=== PATIENT | male | born 1945 | race Caucasian/White ===

== ENCOUNTER 2016-10-12 14:45 | Emergency (ER) | payer MEDICARE, BC ==
[2016-10-12 15:12] VITALS: BP 167/78
--- NOTE | 2016-10-12 15:50 | EDM.PDOC ---
ED HPI GENERAL MEDICAL PROBLEM - General Chief Complaint: Wound Recheck Stated Complaint: SENT FROM [facility] Time Seen by Provider: 10/12/16 15:35 Source of Information: Reports: Patient History Limitations: Reports: No Limitations - History of Present Illness INITIAL COMMENTS - FREE TEXT/NARRATIVE: Patient presents after being sent to the emergency room for continued bleeding from left arm dialysis fistula. He presented with betadine pad, and clamp in place. He is alert, oriented and denies other complaints. 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 (see below) (Betadine, clamp) - Related Data Allergies Allergy/AdvReac Type Severity Reaction Status Date / Time Unable to Assess Allergy Unverified 10/12/16 15:22 Home Meds: Home Meds Calcium Carbonate [Calcium] 10/12/16 [History] Clopidogrel [Plavix] 10/12/16 [History] Gabapentin [Neurontin] 10/12/16 [History] Insulin Lispro [HumaLOG] 10/12/16 [History] Insulin Lispro [HumaLOG] 10/12/16 [History] Lisinopril [Lisinopril] 10/12/16 [History] Metoprolol Succinate 10/12/16 [History] Rosuvastatin [Crestor] 10/12/16 [History] Warfarin [Coumadin] 10/12/16 [History] Past Medical History Cardiovascular History: Reports: High Cholesterol, Hypertension Genitourinary History: Reports: Chronic Renal Insuffiency - Past Surgical History Cardiovascular Surgical History: Reports: Coronary Artery Bypass Other Male Surgeries/Procedures: dialysis Social & Family History - Tobacco Use Smoking Status *Q: Never Smoker ED ROS GENERAL - Review of Systems Review Of Systems: See Below Constitutional: Denies: Fever, Chills, Malaise, Weakness HEENT: Reports: No Symptoms Respiratory: Denies: Shortness of Breath, Wheezing, Cough, Sputum Cardiovascular: Denies: Chest Pain, Dyspnea on Exertion, Lightheadedness, Palpitations, Syncope Endocrine: Reports: No Symptoms Musculoskeletal: Denies: Arm Pain, Joint Swelling, Muscle Pain Skin: Reports: Other (Bleeding wound to left dialysis access. ) Neurological: Denies: Confusion, Dizziness, Headache Psychiatric: Reports: No Symptoms Hematologic/Lymphatic: Reports: Easy Bleeding Immunologic: Reports: No Symptoms ED EXAM, GENERAL - Physical Exam Exam: See Below Exam Limited By: No Limitations General Appearance: Alert, WD/WN, No Apparent Distress Eye Exam: Bilateral Eye: EOMI, PERRL Ears: Normal External Exam, Normal Canal, Hearing Grossly Normal, Normal TMs Ear Exam: Bilateral Ear: Auricle Normal, Canal Normal, TM normal Nose: Normal Inspection, Normal Mucosa, No Blood Throat/Mouth: Normal Inspection, Normal Lips, Normal Teeth, Normal Gums, Normal Oropharynx, Normal Voice, No Airway Compromise Head: Atraumatic, Normocephalic Respiratory/Chest: No Respiratory Distress, Lungs Clear, Normal Breath Sounds, No Accessory Muscle Use, Chest Non-Tender Cardiovascular: Normal Peripheral Pulses, Regular Rate, Rhythm, No Edema, No Gallop, No Murmur Peripheral Pulses: 2+: Radial (L), Radial (R), Dorsalis Pedis (L), Dorsalis Pedis (R) Back Exam: Normal Inspection, Full Range of Motion. No: CVA Tenderness (R), CVA Tenderness (L) Extremities: Normal Inspection, Normal Range of Motion, Non-Tender, No Pedal Edema, Normal Capillary Refill, Other (Dressing with betadine, coban and ice to left arm access. No bleeding at this time. ) Neurological: Alert, Oriented, CN II-XII Intact, Normal Cognition, Normal Gait, No Motor/Sensory Deficits Psychiatric: Normal Affect, Normal Mood Skin Exam: Warm, Dry, Intact, Other (Controlled bleeding from left arm access. ) Lymphatic: No Adenopathy Course - Vital Signs Last Recorded V/S: Last Vital Signs Temp 36.6 C 10/12/16 15:33 Pulse 85 10/12/16 15:33 Resp 16 10/12/16 15:33 BP 167/78 H 10/12/16 15:33 Pulse Ox 95 10/12/16 15:33 - Orders/Labs/Meds Labs: Laboratory Tests 10/12/16 Range/Units 15:50 PT 16.4 H (9.5-12.0) sec INR 1.51 H (0.80-1.20) APTT 44.5 H (27.0-36.0) sec Lab work reviewed. - Re-Assessments/Exams Free Text/Narrative Re-Assessment/Exam: 10/12/16 16:27 No bleeding at this time for 40 minutes. Patient will be discharged to home. Departure - Departure Time of Disposition: 16:24 Disposition: Home, Self-Care 01 Condition: Fair Clinical Impression: Complication of AV dialysis fistula Instructions: Puncture Wound, Xsay-on-Odla Referrals: PCP,None [Primary Care Provider] - Forms: ED Department Discharge Additional Instructions: To treat the bleeding from your fistula we used pressure and ice. This worked well and stopped the bleeding. It is best to keep the compression dressing in place for 60 more minutes once you leave the ER. It is also best to place ice to the area for 15 minutes at time for the next 2 to 4 hours. Return for worsening, issues or concerns. - Assessment/Plan Assessment:: Bleeding from dialysis fistula site status post dialysis. No bleeding during ER stay and at time of discharge Plan: Use of pressure and ice since time of arrival. This worked well and stopped the bleeding. Patient advised it is best to keep the compression dressing in place for 60 more minutes once he leaves the ER. It is also best to place ice to the area for 15 minutes at time for the next 2 to 4 hours. Return for worsening, issues or concerns.
== END 2016-10-12 16:55 | disposition home or self-care (01) ==
LOC: JP.ED 14:45
DX: T82.838A Hemorrhage due to vascular prosthetic devices, implants and grafts, initial encounter (principal); I12.9 Hypertensive chronic kidney disease with stage 1 through stage 4 chronic kidney disease, or unspecified chronic kidney disease; N18.9 Chronic kidney disease, unspecified; E78.00 Pure hypercholesterolemia, unspecified; Z95.1 Presence of aortocoronary bypass graft; Z99.2 Dependence on renal dialysis
CPT/HCPCS: 36415; 85610; 85730; 99283; 99284

== ENCOUNTER 2017-07-30 11:07 | Emergency (ER) | payer MEDICARE, BC ==
--- NOTE | 2017-07-30 12:33 | EDM.PDOC ---
ED HPI GENERAL MEDICAL PROBLEM - General Chief Complaint: General Stated Complaint: WEAKNESS Time Seen by Provider: 07/30/17 12:21 Source of Information: Reports: Patient, Family, RN Notes Reviewed History Limitations: Reports: No Limitations - History of Present Illness INITIAL COMMENTS - FREE TEXT/NARRATIVE: 72-year-old gentleman presents to the emergency department today complaint of weakness. He has a known history of end-stage renal disease on dialysis he was scheduled to go to dialysis today however did not make it due to feeling so poorly. He is also been dealing with Clostridium difficile is currently on vancomycin. He is not from the area [place], he denies any other symptoms - Related Data Allergies Allergy/AdvReac Type Severity Reaction Status Date / Time aminophylline Allergy Swelling Verified 07/30/17 11:43 Home Meds: Home Meds Gabapentin [Neurontin] 300 mg PO TID 10/12/16 [History] Insulin Lispro [HumaLOG] 10 units SUBCNJ TID 10/12/16 [History] Lisinopril 5 mg PO DAILY 10/12/16 [History] Metoprolol Succinate 25 mg PO DAILY 10/12/16 [History] Rosuvastatin [Crestor] 40 mg PO DAILY 10/12/16 [History] Warfarin [Coumadin] 7.5 tab PO ASDIRECTED 10/12/16 [History] Aspirin 81 mg PO DAILY 07/30/17 [History] Calcium Acetate 667 mg PO DAILY 07/30/17 [History] Insulin Glarg,Human.Rec.Analog [Lantus Solostar] 15 units SUBCNJ BID 07/30/17 [ History] Nitroglycerin [Nitrostat] 0.4 mg PO ASDIRECTED PRN 07/30/17 [History] Vancomycin 125 mg PO BID 07/30/17 [History] Past Medical History HEENT History: Reports: Impaired Vision Cardiovascular History: Reports: High Cholesterol, Hypertension Gastrointestinal History: Reports: Other (See Below) Other Gastrointestinal History: diverticulitis Genitourinary History: Reports: Chronic Renal Insuffiency Endocrine/Metabolic History: Reports: Diabetes, Type II Hematologic History: Reports: Blood Transfusion(s) - Past Surgical History Cardiovascular Surgical History: Reports: Coronary Artery Bypass GI Surgical History: Reports: Colon Other Male Surgeries/Procedures: dialysis Social & Family History - Tobacco Use Smoking Status *Q: Never Smoker - Caffeine Use Caffeine Use: Reports: Coffee - Alcohol Use Days Per Week of Alcohol Use: 7 Number of Drinks Per Day: 2 Total Drinks Per Week: 14 - Recreational Drug Use Recreational Drug Use: No ED ROS GENERAL - Review of Systems Review Of Systems: See Below Constitutional: Reports: Weakness, Fatigue. Denies: Fever, Chills HEENT: Reports: No Symptoms Respiratory: Reports: No Symptoms Cardiovascular: Reports: No Symptoms GI/Abdominal: Reports: No Symptoms : Reports: No Symptoms Skin: Reports: No Symptoms Neurological: Reports: No Symptoms ED EXAM, GENERAL - Physical Exam Exam: See Below Free Text/Narrative:: General: Male, ill-appearing, alert and oriented x3 HEENT: head is atraumatic normocephalic, eyes pupils equal round reactive to light, sclera clear no conjunctivitis appreciated. Ears tympanic membranes clear and palacios landmarks and light reflex are present bilaterally canals are clear. Nose no septal deviation, nares are clear, no blood present. Mouth mucosa is moist and pink no erythema or exudate noted in soft palate, tongue is midline uvula is midline , dentures in place. Neck: Supple no thyromegaly no tracheal deviation. Nodes: Cervical nodes subclavicular nodes nontender no palpable lymphadenopathy noted. Lungs: clear to auscultation bilaterally with symmetrical respirations, no adventitious noise appreciated. CV: Irregularly irregular rate and rhythm S1 and S2 appreciated no murmurs rubs or gallops noted. Abdomen: Soft, nontender, no palpable masses or organomegaly appreciated, no distention no guarding bowel sounds are present, . Neuro: Cranial nerves II through XII grossly intact Skin: Warm and dry, intact Extremities: No lower extremity edema appreciated, Course - Vital Signs Last Recorded V/S: Last Vital Signs Temp 96.8 F 07/30/17 11:59 Pulse 79 07/30/17 11:59 Resp 20 07/30/17 11:59 BP 103/47 L 07/30/17 11:59 Pulse Ox 94 L 07/30/17 11:59 - Orders/Labs/Meds Orders: Active Orders 24 hr Category Date Time Status Peripheral IV Care [RC] . DIRECTED Care 07/30/17 14:40 Active CULTURE BLOOD [BC] Urgent Lab 07/30/17 14:40 Ordered CULTURE BLOOD [BC] Urgent Lab 07/30/17 14:40 Ordered Piperacillin/Tazobactam [Zosyn] 3.375 gm Med 07/30/17 14:45 Active Sodium Chloride 0.9% [Normal Saline] 50 ml IV Q6H Sodium Chloride 0.9% [Normal Saline] 1,000 ml Med 07/30/17 14:45 Active IV ASDIRECTED Sodium Chloride 0.9% [Saline Flush] Med 07/30/17 14:40 Active 10 ml FLUSH ASDIRECTED PRN Blood Culture x2 Reflex Set [OM.PC] Urgent Ot 07/30/17 14:40 Ordered Peripheral IV Insertion Adult [OM.PC] Urgent Ot 07/30/17 14:39 Ordered Medication Orders Piperacillin Sod/Tazobactam (Sod 3.375 gm/ Sodium Chloride) 50 mls @ 100 mls/ hr IV Q6H BASHIR Sodium Chloride (Normal Saline) 1,000 mls @ 999 mls/hr IV ASDIRECTED BASHIR Sodium Chloride (Saline Flush) 10 ml FLUSH ASDIRECTED PRN PRN Reason: Keep Vein Open Labs: Laboratory Tests 07/30/17 07/30/17 07/30/17 Range/Units 12:41 12:41 12:41 WBC 17.6 H (4.5-11.0) K/uL RBC 3.35 L (4.30-5.90) M/uL Hgb 10.6 L (12.0-15.0) g/dL Hct 31.6 L (40.0-54.0) % MCV 94 (80-98) fL MCH 32 H (27-31) pg MCHC 34 (32-36) % Plt Count 324 (150-400) K/uL Neut % (Auto) 81 H (36-66) % Lymph % (Auto) 9 L (24-44) % Lamb % (Auto) 9 H (2-6) % Eos % (Auto) 1 L (2-4) % Baso % (Auto) 0 (0-1) % PT (9.5-12.0) sec INR (0.80-1.20) Sodium 135 L (140-148) mmol/L Potassium 5.1 (3.6-5.2) mmol/L Chloride 95 L (100-108) mmol/L Carbon Dioxide 23 (21-32) mmol/L Anion Gap 22.1 H (5.0-14.0) mmol/L BUN 75 H (7-18) mg/dL Creatinine 9.1 H* (0.8-1.3) mg/dL Est Cr Clr Drug Dosing 7.20 mL/min Estimated GFR (MDRD) 6 L (>60) Glucose 171 H (74-106) mg/dL Lactic Acid 1.4 (0.4-2.0) mmol/L Calcium 9.1 (8.5-10.1) mg/dL Total Bilirubin 0.4 (0.2-1.0) mg/dL AST 18 (15-37) U/L ALT 30 (12-78) U/L Alkaline Phosphatase 87 (46-116) U/L Troponin I < 0.017 (0.000-0.056) ng/mL C-Reactive Protein (0.0-0.3) mg/dL Total Protein 7.5 (6.4-8.2) g/dL Albumin 3.4 (3.4-5.0) g/dL Globulin 4.1 H (2.3-3.5) g/dL Albumin/Globulin Ratio 0.8 L (1.2-2.2) TSH, Ultra Sensitive 0.558 (0.358-3.740) uIU/mL 07/30/17 07/30/17 Range/Units 14:40 14:41 WBC (4.5-11.0) K/uL RBC (4.30-5.90) M/uL Hgb (12.0-15.0) g/dL Hct (40.0-54.0) % MCV (80-98) fL MCH (27-31) pg MCHC (32-36) % Plt Count (150-400) K/uL Neut % (Auto) (36-66) % Lymph % (Auto) (24-44) % Lamb % (Auto) (2-6) % Eos % (Auto) (2-4) % Baso % (Auto) (0-1) % PT 47.7 H (9.5-12.0) sec INR 4.20 H* D (0.80-1.20) Sodium (140-148) mmol/L Potassium (3.6-5.2) mmol/L Chloride (100-108) mmol/L Carbon Dioxide (21-32) mmol/L Anion Gap (5.0-14.0) mmol/L BUN (7-18) mg/dL Creatinine (0.8-1.3) mg/dL Est Cr Clr Drug Dosing mL/min Estimated GFR (MDRD) (>60) Glucose (74-106) mg/dL Lactic Acid (0.4-2.0) mmol/L Calcium (8.5-10.1) mg/dL Total Bilirubin (0.2-1.0) mg/dL AST (15-37) U/L ALT (12-78) U/L Alkaline Phosphatase (46-116) U/L Troponin I (0.000-0.056) ng/mL C-Reactive Protein 13.60 H (0.0-0.3) mg/dL Total Protein (6.4-8.2) g/dL Albumin (3.4-5.0) g/dL Globulin (2.3-3.5) g/dL Albumin/Globulin Ratio (1.2-2.2) TSH, Ultra Sensitive (0.358-3.740) uIU/mL Meds: Medications Generic Name Dose Route Start Last Admin Trade Name Freq PRN Reason Stop Dose Admin Piperacillin Sod/Tazobactam 50 mls @ 100 mls/hr 07/30/17 14:45 Sod 3.375 gm/ Sodium Chloride IV Q6H BASHIR Sodium Chloride 1,000 mls @ 999 mls/hr 07/30/17 14:45 Normal Saline IV ASDIRECTED BASHIR Sodium Chloride 10 ml 07/30/17 14:40 Saline Flush FLUSH ASDIRECTED PRN Keep Vein Open Departure - Departure Time of Disposition: 15:13 Disposition: DC/Tfer to Acute Hospital 02 Condition: Fair Clinical Impression: End stage renal disease on dialysis - Discharge Information Referrals: PCP,None [Primary Care Provider] - Forms: ED Department Discharge - My Orders Last 24 Hours: My Active Orders 07/30/17 14:39 Peripheral IV Insertion Adult [OM.PC] Urgent 07/30/17 14:40 Peripheral IV Care [RC] . DIRECTED CULTURE BLOOD [BC] Urgent CULTURE BLOOD [BC] Urgent Sodium Chloride 0.9% [Saline Flush] 10 ml FLUSH ASDIRECTED PRN Blood Culture x2 Reflex Set [OM.PC] Urgent 07/30/17 14:45 Piperacillin/Tazobactam [Zosyn] 3.375 gm Sodium Chloride 0.9% [Normal Saline] 50 ml IV Q6H Sodium Chloride 0.9% [Normal Saline] 1,000 ml IV ASDIRECTED - Assessment/Plan Last 24 Hours: My Active Orders 07/30/17 14:39 Peripheral IV Insertion Adult [OM.PC] Urgent 07/30/17 14:40 Peripheral IV Care [RC] . DIRECTED CULTURE BLOOD [BC] Urgent CULTURE BLOOD [BC] Urgent Sodium Chloride 0.9% [Saline Flush] 10 ml FLUSH ASDIRECTED PRN Blood Culture x2 Reflex Set [OM.PC] Urgent 07/30/17 14:45 Piperacillin/Tazobactam [Zosyn] 3.375 gm Sodium Chloride 0.9% [Normal Saline] 50 ml IV Q6H Sodium Chloride 0.9% [Normal Saline] 1,000 ml IV ASDIRECTED Plan: Assessment Acuity = acute Site and laterality = weakness complicated patient with end-stage renal disease also history of atrial fibrillation on anticoagulation therapy Etiology = unclear etiology concern for occult infection Manifestations = none Location of injury = Home Lab values = WBC elevated at 17.6 consistent leukocytosis, hemoglobin low at 10.6 consistent normochromic anemia sodium low at 135 consistent hyponatremia creatinine elevated at 9.1 consistent with end-stage renal disease G5 D lactic acid normal 1.4 troponin normal 0.017 CRP elevated at 13.6 TSH normal 0.5 INR supratherapeutic at 4.2 no image studies done at this time Plan Called discussed case with Dr. Lemon who kindly accepted the patient in transport will be transported via EMS ground blood cultures have been drawn antibiotic of Zosyn initiated in route This note was dictated using [employer] voice recognition software please call with any questions on syntax or chuy.
[2017-07-30] MEDS ORDERED: Sodium Chloride 0.9% 10 ML Syringe FLUSH PRN (14:40)
[2017-07-30] MEDS ORDERED: Sodium Chloride 0.9% 1,000 ML IV SCH (14:45)
[2017-07-30] MEDS ORDERED: Piperacillin/Tazobactam 3.375 GM in Sodium Chloride 0.9% 50 ML IV SCH (14:45)
[2017-07-30] MEDS ORDERED: Piperacillin/Tazobactam/Dext 3.375 GM in Premix Bag 1 BAG IV SCH (15:30)
[2017-07-30 15:38] VITALS: BP 114/47
== END 2017-07-30 15:46 ==
LOC: JP.ED 11:07
DX: I12.0 Hypertensive chronic kidney disease with stage 5 chronic kidney disease or end stage renal disease (principal); E11.22 Type 2 diabetes mellitus with diabetic chronic kidney disease; N18.6 End stage renal disease; E78.00 Pure hypercholesterolemia, unspecified; I48.91 Unspecified atrial fibrillation; Z88.8 Allergy status to other drugs, medicaments and biological substances; Z79.4 Long term (current) use of insulin; Z79.899 Other long term (current) drug therapy; Z79.82 Long term (current) use of aspirin; Z79.01 Long term (current) use of anticoagulants
CPT/HCPCS: 36415; 80053; 83605; 84443; 84484; 85025; 85610; 86140; 87040; 96361; 96374; 99285; J2543; J7040; J7050

== ENCOUNTER 2019-01-05 23:38 | Emergency (ER) | payer MEDICARE, BC ==
--- NOTE | 2019-01-05 23:45 | EDM.PDOC ---
ED HPI GENERAL MEDICAL PROBLEM - General Chief Complaint: Cardiovascular Problem Stated Complaint: MEDICAL VIA [facility] Time Seen by Provider: 01/05/19 23:40 Source of Information: Reports: Patient, EMS History Limitations: Reports: Other (limited old records) - History of Present Illness INITIAL COMMENTS - FREE TEXT/NARRATIVE: 73 yo male presents via EMS with resolved chest pain. He took NTG x 3 before EMS arrived without relief, but by the time EMS arrived he was nevertheless pain -free. He describes a pressure in the L lower/medial chest that lasted about an hour. It was similar to heart pain he has had in the past. He had CABG in and a stent last year. Lives with his . Home is [place], [place]. Has hx of many years of tobacco use. Does peritoneal dialysis at home for his end stage renal failure. chest pain Pain Score (Numeric/FACES): 0 - Related Data Allergies Allergy/AdvReac Type Severity Reaction Status Date / Time aminophylline Allergy Swelling Verified 01/05/19 23:40 Home Meds: Home Meds Gabapentin [Neurontin] 300 mg PO BID 10/12/16 [History] Insulin Lispro [HumaLOG] 10 units SUBCNJ ASDIRECTED 10/12/16 [History] Lisinopril 2.5 mg PO ASDIRECTED 10/12/16 [History] Rosuvastatin [Crestor] 40 mg PO DAILY 10/12/16 [History] Warfarin [Coumadin] 7.5 mg PO ASDIRECTED 10/12/16 [History] Calcium Acetate 5 tab PO DAILY 07/30/17 [History] Insulin Glarg,Human.Rec.Analog [Lantus Solostar] 15 units SUBCNJ BID 07/30/17 [ History] Nitroglycerin [Nitrostat] 0.4 mg PO ASDIRECTED PRN 07/30/17 [History] Carvedilol [Coreg] 3.125 mg PO BID 01/05/19 [History] Clopidogrel Bisulfate [Clopidogrel] 75 mg PO DAILY 01/05/19 [History] Warfarin Sodium 5 mg PO ASDIRECTED 01/05/19 [History] Past Medical History HEENT History: Reports: Impaired Vision Cardiovascular History: Reports: High Cholesterol, Hypertension Gastrointestinal History: Reports: Other (See Below) Other Gastrointestinal History: diverticulitis Genitourinary History: Reports: Chronic Renal Insuffiency Endocrine/Metabolic History: Reports: Diabetes, Type II Hematologic History: Reports: Blood Transfusion(s) - Past Surgical History Cardiovascular Surgical History: Reports: Coronary Artery Bypass GI Surgical History: Reports: Colon Other Male Surgeries/Procedures: dialysis Social & Family History - Caffeine Use Caffeine Use: Reports: Coffee ED ROS GENERAL - Review of Systems Review Of Systems: See Below Constitutional: Reports: No Symptoms HEENT: Reports: No Symptoms Respiratory: Reports: No Symptoms Cardiovascular: Reports: Chest Pain Endocrine: Reports: No Symptoms GI/Abdominal: Reports: No Symptoms : Reports: No Symptoms Musculoskeletal: Reports: No Symptoms Skin: Reports: No Symptoms Neurological: Reports: No Symptoms ED EXAM, GENERAL - Physical Exam Exam: See Below Exam Limited By: No Limitations General Appearance: Alert, WD/WN, No Apparent Distress Eye Exam: Bilateral Eye: Normal Inspection Ears: Normal External Exam, Normal Canal, Hearing Grossly Normal Ear Exam: Bilateral Ear: Auricle Normal, Canal Normal Nose: Normal Inspection, No Blood Throat/Mouth: Normal Inspection, Normal Lips, Normal Oropharynx, Normal Voice, No Airway Compromise Head: Atraumatic, Normocephalic Neck: Normal Inspection Respiratory/Chest: No Respiratory Distress, No Accessory Muscle Use, Decreased Breath Sounds Cardiovascular: Regular Rate, Rhythm, No Edema GI/Abdominal: Normal Bowel Sounds, Soft, Non-Tender, No Distention Extremities: Normal Inspection, Normal Range of Motion, Non-Tender, No Pedal Edema Neurological: Alert, Oriented, CN II-XII Intact, Normal Cognition, No Motor/ Sensory Deficits Psychiatric: Normal Affect, Normal Mood Skin Exam: Warm, Dry, Intact, Normal Color, No Rash, Other (Old, healed sternotomy scar. ) EKG INTERPRETATION EKG Date: 01/05/19 Time: 23:35 Rhythm: NSR Rate (Beats/Min): 72 [place]: Normal P-Wave: Present QRS: Normal ST-T: Depressed (slightly in lateral leads.) QT: Prolonged Comparison: NA - No Prior EKG Course - Vital Signs Last Recorded V/S: Last Vital Signs Temp 36.4 C 01/05/19 23:43 Pulse 68 01/05/19 23:43 Resp 12 01/05/19 23:43 BP 161/61 H 01/05/19 23:43 Pulse Ox 96 01/05/19 23:43 - Orders/Labs/Meds Orders: Active Orders 24 hr Category Date Time Status Cardiac Monitoring [RC] .As Directed Care 01/05/19 23:39 Active EKG Documentation Completion [RC] ASDIRECTED Care 01/05/19 23:38 Active EKG 12 Lead [EK] Routine Ther 01/05/19 23:38 Ordered Labs: Laboratory Tests 01/05/19 01/05/19 01/05/19 Range/Units 23:40 23:40 23:40 WBC 9.9 (4.5-11.0) K/uL RBC 3.39 L (4.30-5.90) M/uL Hgb 10.5 L (12.0-15.0) g/dL Hct 33.7 L (40.0-54.0) % MCV 99 H (80-98) fL MCH 31 (27-31) pg MCHC 31 L (32-36) % Plt Count 328 (150-400) K/uL PT (9.5-12.0) sec INR (0.80-1.20) D-Dimer, Quantitative 1420 H (0.0-400.0) ng/mL Sodium 140 (140-148) mmol/L Potassium 3.6 (3.6-5.2) mmol/L Chloride 101 (100-108) mmol/L Carbon Dioxide 26 (21-32) mmol/L Anion Gap 13.4 (5.0-14.0) mmol/L BUN 109 H* (7-18) mg/dL Creatinine 9.6 H* (0.8-1.3) mg/dL Est Cr Clr Drug Dosing 6.73 mL/min Estimated GFR (MDRD) 5 L (>60) Glucose 221 H (74-106) mg/dL Calcium 10.4 H (8.5-10.1) mg/dL Troponin I 0.104 H* (0.000-0.056) ng/mL 01/05/19 01/06/19 Range/Units 23:40 02:09 WBC (4.5-11.0) K/uL RBC (4.30-5.90) M/uL Hgb (12.0-15.0) g/dL Hct (40.0-54.0) % MCV (80-98) fL MCH (27-31) pg MCHC (32-36) % Plt Count (150-400) K/uL PT 13.9 H (9.5-12.0) sec INR 1.31 H D (0.80-1.20) D-Dimer, Quantitative (0.0-400.0) ng/mL Sodium (140-148) mmol/L Potassium (3.6-5.2) mmol/L Chloride (100-108) mmol/L Carbon Dioxide (21-32) mmol/L Anion Gap (5.0-14.0) mmol/L BUN (7-18) mg/dL Creatinine (0.8-1.3) mg/dL Est Cr Clr Drug Dosing mL/min Estimated GFR (MDRD) (>60) Glucose (74-106) mg/dL Calcium (8.5-10.1) mg/dL Troponin I 0.228 H* (0.000-0.056) ng/mL Meds: Medications Discontinued Medications Generic Name Dose Route Start Last Admin Trade Name Freq PRN Reason Stop Dose Admin Enoxaparin Sodium 80 mg 01/06/19 02:44 Lovenox SUBCUT 01/06/19 02:45 ONETIME ONE Warfarin Sodium 5 mg 01/06/19 01:00 01/06/19 01:31 Coumadin PO 01/06/19 01:01 5 mg ONETIME ONE Administration Departure - Departure Time of Disposition: 03:00 Disposition: DC/Tfer to Acute Hospital 02 Reason for Transfer *Q: Other Condition: Serious Clinical Impression: Elevated troponin, End stage renal disease on dialysis Referrals: PCP,None [Primary Care Provider] - Forms: ED Department Discharge - My Orders Last 24 Hours: My Active Orders 01/05/19 23:38 EKG Documentation Completion [RC] ASDIRECTED EKG 12 Lead [EK] Routine 01/05/19 23:39 Cardiac Monitoring [RC] .As Directed - Assessment/Plan Last 24 Hours: My Active Orders 01/05/19 23:38 EKG Documentation Completion [RC] ASDIRECTED EKG 12 Lead [EK] Routine 01/05/19 23:39 Cardiac Monitoring [RC] .As Directed
[2019-01-06] MEDS ORDERED: Warfarin 5 MG Tab PO ONE (01:00)
[2019-01-06] MEDS ORDERED: Enoxaparin 80 MG/0.8 ML Syringe SUBCUT ONE (02:44)
[2019-01-06] MEDS ORDERED: Heparin Sodium 5,000 Units/ML Vial IVPUSH ONE (03:01)
[2019-01-06] MEDS ORDERED: Heparin Sodium/D5W 25,000 UNITS/500 ML BAG IV SCH ×2 (03:15→03:30)
[2019-01-06 03:57] VITALS: BP 158/52; PULSE 62
== END 2019-01-06 03:44 ==
LOC: JP.ED 23:38
DX: I12.0 Hypertensive chronic kidney disease with stage 5 chronic kidney disease or end stage renal disease (principal); E11.22 Type 2 diabetes mellitus with diabetic chronic kidney disease; N18.6 End stage renal disease; R79.89 Other specified abnormal findings of blood chemistry; E78.00 Pure hypercholesterolemia, unspecified; Z79.4 Long term (current) use of insulin; Z79.01 Long term (current) use of anticoagulants; Z79.02 Long term (current) use of antithrombotics/antiplatelets; Z79.899 Other long term (current) drug therapy; Z88.8 Allergy status to other drugs, medicaments and biological substances; Z95.1 Presence of aortocoronary bypass graft; Z95.5 Presence of coronary angioplasty implant and graft; Z99.2 Dependence on renal dialysis
CPT/HCPCS: 36415; 80048; 84484; 85027; 85379; 85610; 93005; 96365; 99285-25; A9270-GY; J1644